=== PATIENT | male | born 1945 | race American Indian/Alaskan Native ===

== ENCOUNTER 2020-04-10 16:19 | Emergency (ER) | payer SELFPAY ==
[2020-04-10 16:38] LABS: #Basophils 0.1 thou/uL (0.0-0.2); #Eosinphils 0.4 thou/uL (0.0-0.7); #Lymphocytes 3.6 thou/uL (1.20-3.40); #Neutrophils 6.9 thou/uL (1.40-6.50); %Basophils 1.1 % (0.0-1.0); %Eosinophils 2.9 % (0.0-10.0); %Lymphocytes 29.8 % (21.0-51.0); %Monocytes 8.3 % (0.0-10.0); %Neutrophils 57.9 % (42.0-75.0); Hemoglobin 16.2 g/dL (14.0-18.0); Mean Corpuscular HGB CONC 33.5 g/dL (32.0-36.0); Mean Corpuscular Hemoglobin 30.8 pg (27.0-31.0); Mean Corpuscular Volume 92.1 fL (78.0-98.0); Mean Platelet Volume 7.1 fL (7.4-10.4); Platelet Count 350 thou/uL (130-400); RBC Distribution Width 13.2 % (11.5-14.5); Red Blood Cell (RBC) Count 5.25 mill/uL (4.70-6.10)
[2020-04-10 16:39] LABS: INR-International Normal Ratio 1.1
[2020-04-10 16:43] LABS: Anion Gap 19 mmol/L (10-20); BUN (Urea Nitrogen) 42 mg/dL (8.4-25.7); Calc. Creatinine Clearance 0 mL/min (70-130); Carbon Dioxide 20 mmol/L (23-31); Chloride 93 mmol/L (98-107); Potassium 4.5 mmol/L (3.5-5.1)
[2020-04-10 16:44] LABS: ALT (SGPT) 12 U/L (8-55); AST (SGOT) 15 U/L (5-34); Albumin 4.2 g/dL (3.4-4.8); Alkaline Phosphatase 71 U/L (40-110); Bilirubin, Total 0.6 mg/dL (0.2-1.2); Calcium 9.7 mg/dL (7.8-10.44); Globulin 4.4 g/dL (2.4-3.5); Protein, Total 8.6 g/dL (5.8-8.1)
[2020-04-10 16:45] LABS: Glucose 408 mg/dL (83-110); Sodium 127 mmol/L (136-145)
[2020-04-10 17:11] LABS: CKMB 2.8 ng/mL (0-6.6)
--- NOTE | 2020-04-10 17:18 | RAD ---
Chest one view HISTORY: Dyspnea. FINDINGS: No comparison. Cardiac silhouette is magnified by projection. Pulmonary vasculature are unr emarkable. Mediastinum is midline with aortic calcification. No lobar consolidation or evidence of pneumothorax. IMPRESSION : : Atherosclerosis. No acute abnormalities are demonstrated.
== END 2020-04-10 17:15 | disposition short-term general hospital (02) ==
LOC: NAV ERS 16:19
DX: I63.9 Cerebral infarction, unspecified (principal); E11.65 Type 2 diabetes mellitus with hyperglycemia; E87.1 Hypo-osmolality and hyponatremia; R47.01 Aphasia
CPT/HCPCS: 36416; 71045; 80053; 82553; 84484; 85025; 85610; 85730; 93005; 94760